=== PATIENT | male | born 1950 | race Caucasian/White ===

== ENCOUNTER 2025-04-19 07:30 | Outpatient (RCR) | payer MEDICARE, OTHER, SELFPAY | END 2025-08-17 23:59 | disposition home or self-care (01) | PROVIDERS: PCP Student in an Organized Health Care Education/Training Program; Visit Provider Student in an Organized Health Care Education/Training Program | DX: R68.89 Other general symptoms and signs (principal); Z74.09 Other reduced mobility; Z91.89 Other specified personal risk factors, not elsewhere classified; Z51.89 Encounter for other specified aftercare | CPT/HCPCS: 97110; 97162; 97165 ==